=== PATIENT | male | born 1990 | race Caucasian/White ===

== ENCOUNTER 2021-01-24 08:14 | Emergency (ER) | payer MEDICAID ==
[~2021-01-24] VITALS: Ht 175.3 cm; Wt 75.0 kg
[2021-01-24 08:45] VITALS: BP 121/90
== END 2021-01-24 10:58 | disposition still patient (30) ==
LOC: ER 08:14
DX: J06.9 Acute upper respiratory infection, unspecified (principal); Z20.822 Contact with and (suspected) exposure to COVID-19; R50.9 Fever, unspecified; R05 Cough; R43.8 Other disturbances of smell and taste
CPT/HCPCS: 87635; 99283; C9803